=== PATIENT | female | born 1980 | race American Indian/Alaskan Native ===

== ENCOUNTER 2017-11-19 17:47 | Emergency (ER) | payer BC, MEDICAID ==
--- NOTE | 2017-11-19 18:31 | EDM.PDOC ---
ED HPI GENERAL MEDICAL PROBLEM - General Chief Complaint: ENT Problem Stated Complaint: [id number] really sick- strep Time Seen by Provider: 11/19/17 18:15 Source of Information: Reports: Patient History Limitations: Reports: No Limitations - History of Present Illness INITIAL COMMENTS - FREE TEXT/NARRATIVE: This 36 yo female patient reports to the ED with a sore throat, pressure in her ears and pressure in her head for 3 days. The patient reports she has been taking OTC medications for the past 3 days with little to no improvement. Duration: Day(s): Location: Reports: Head, Face Quality: Reports: Other Severity: Mild Improves with: Reports: None Worsens with: Reports: None Throat Pain Score (Numeric/FACES): 8 - Related Data Allergies Allergy/AdvReac Type Severity Reaction Status Date / Time No Known Allergies Allergy Verified 11/19/17 17:58 Home Meds: Home Meds . [No Known Home Meds] 11/19/17 [History] Past Medical History HEENT History: Reports: Other (See Below) Other HEENT History: Strep Throat Other OB/BYN History: LMP 10/03/2017, gets the Depo shot Social & Family History - Tobacco Use Smoking Status *Q: Never Smoker Second Hand Smoke Exposure: No ED ROS ENT - Review of Systems Review Of Systems: ROS reveals no pertinent complaints other than HPI. ED EXAM, ENT - Physical Exam Exam: See Below Exam Limited By: No Limitations General Appearance: Alert, WD/WN, Moderate Distress Eye Exam: Bilateral Eye: EOMI, Normal Inspection, PERRL Ears: TM Dullness Nose: Normal Inspection, Normal Mucousa, No Blood Mouth/Throat: Normal Inspection, Normal Gums, Normal Lips, Normal Oropharynx, Normal Teeth Head: Sinus Tenderness Neck: Normal Inspection, Supple, Non-Tender, Full Range of Motion Respiratory/Chest: No Respiratory Distress, Lungs Clear, Normal Breath Sounds, No Accessory Muscle Use, Chest Non-Tender Cardiovascular: Normal Peripheral Pulses, Regular Rate, Rhythm, No Edema, No Gallop, No JVD, No Murmur, No Rub GI/Abdominal: Normal Bowel Sounds, Soft, Non-Tender, No Organomegaly, No Distention, No Abnormal Bruit, No Mass (Female) Exam: Deferred Rectal (Female) Exam: Deferred Back: Normal Inspection, Full Range of Motion Extremities: Normal Inspection, Normal Range of Motion, Non-Tender, No Pedal Edema, Normal Capillary Refill Neurological: Alert, Oriented, CN II-XII Intact, Normal Cognition, Normal Gait, Normal Reflexes, No Motor/Sensory Deficits Psychiatric: Normal Affect, Normal Mood Skin: Warm, Dry, Intact, Normal Color, No Rash Lymphatic: No Adenopathy Course - Vital Signs Last Recorded V/S: Last Vital Signs Temp 37.2 C 11/19/17 17:52 Pulse 80 11/19/17 17:52 Resp 18 11/19/17 17:52 BP Pulse Ox 98 11/19/17 17:52 - Orders/Labs/Meds Orders: Active Orders 24 hr Category Date Time Status CULTURE STREP A CONFIRMATION [RM] Stat Lab 11/19/17 18:05 Results INFLUENZA A+B AG SCREEN [RM] Stat Lab 11/19/17 18:05 Received STREP SCRN A RAPID W CULT CONF [] Stat Lab 11/19/17 18:05 Results Departure - Departure Time of Disposition: 18:29 Disposition: Home, Self-Care 01 Condition: Fair Clinical Impression: Acute sinusitis Qualifiers: Sinusitis location: maxillary Recurrence: non-recurrent Qualified Code(s): J01.00 - Acute maxillary sinusitis, unspecified - Discharge Information Instructions: Sinusitis, Adult, [id number] Referrals: Jess Helm [facility] [Primary Care Provider] - Care Plan Goals: The patient was advised of the examination and lab results during the visit. The patient was given a script for Augmentin (875/125) to take 1 by mouth 2 times per day for 10 days. If the patient has any additional symptoms or concerns, the patient should follow-up with her primary care facility or return to the emergency department. - My Orders Last 24 Hours: My Active Orders 11/19/17 18:05 CULTURE STREP A CONFIRMATION [RM] Stat INFLUENZA A+B AG SCREEN [RM] Stat STREP SCRN A RAPID W CULT CONF [RM] Stat - Assessment/Plan Last 24 Hours: My Active Orders 11/19/17 18:05 CULTURE STREP A CONFIRMATION [RM] Stat INFLUENZA A+B AG SCREEN [RM] Stat STREP SCRN A RAPID W CULT CONF [RM] Stat
== END 2017-11-19 18:43 | disposition home or self-care (01) ==
LOC: DL.ED 17:47
DX: J01.00 Acute maxillary sinusitis, unspecified (principal)
CPT/HCPCS: 87081; 87430; 87804; 99283

== ENCOUNTER 2018-11-22 07:11 | Emergency (ER) | payer BC, MEDICAID ==
--- NOTE | 2018-11-22 07:22 | EDM.PDOC ---
ED HPI GENERAL MEDICAL PROBLEM - General Chief Complaint: General Stated Complaint: WORK WANTS HER CHECKED FOR FLU Time Seen by Provider: 11/22/18 07:21 Source of Information: Reports: Patient, Long-Term Records, RN History Limitations: Reports: No Limitations - History of Present Illness INITIAL COMMENTS - FREE TEXT/NARRATIVE: Pt to ER with c/o cough, congestion, fever, body aches, sore throat that began about 3 days ago. She states she works at [employer] and her work is requesting she be tested for influenza. Onset: Gradual Duration: Constant, Getting Worse - Related Data Allergies Allergy/AdvReac Type Severity Reaction Status Date / Time No Known Allergies Allergy Verified 11/22/18 07:15 Home Meds: Home Meds . [No Known Home Meds] 11/19/17 [History] Past Medical History HEENT History: Reports: Other (See Below) Other HEENT History: Strep Throat Cardiovascular History: Reports: None Respiratory History: Reports: None Gastrointestinal History: Reports: None LACTATION NURSE History: Reports: None Other LACTATION NURSE History: LMP 10/03/2017, gets the Depo shot Musculoskeletal History: Reports: None Neurological History: Reports: None Psychiatric History: Reports: None Endocrine/Metabolic History: Reports: None Hematologic History: Reports: None Immunologic History: Reports: None Oncologic (Cancer) History: Reports: None Dermatologic History: Reports: None - Infectious Disease History Infectious Disease History: Reports: None - Past Surgical History Head Surgeries/Procedures: Reports: None Female Surgical History: Reports: D&C Social & Family History - Family History Family Medical History: Noncontributory - Tobacco Use Smoking Status *Q: Never Smoker Second Hand Smoke Exposure: No - Caffeine Use Caffeine Use: Reports: Coffee, Soda - Recreational Drug Use Recreational Drug Use: No ED ROS GENERAL - Review of Systems Review Of Systems: ROS reveals no pertinent complaints other than HPI. ED EXAM, GENERAL - Physical Exam Exam: See Below Exam Limited By: No Limitations General Appearance: Alert, WD/WN, No Apparent Distress Eye Exam: Bilateral Eye: EOMI, Normal Inspection Ears: Normal External Exam, Normal Canal, Hearing Grossly Normal, Normal TMs Nose: Normal Inspection Throat/Mouth: Normal Inspection, Normal Lips, Normal Teeth, Normal Gums, Normal Oropharynx (mild erythema), Normal Voice, No Airway Compromise Head: Atraumatic, Normocephalic Neck: Normal Inspection, Supple, Non-Tender, Full Range of Motion Respiratory/Chest: No Respiratory Distress, Lungs Clear, Normal Breath Sounds, No Accessory Muscle Use, Chest Non-Tender Cardiovascular: Normal Peripheral Pulses, Regular Rate, Rhythm, No Edema, No Gallop, No JVD, No Murmur, No Rub Peripheral Pulses: 2+: Radial (L), Radial (R) GI/Abdominal: Normal Bowel Sounds, Soft, Non-Tender (Female) Exam: Deferred Rectal (Female) Exam: Deferred Back Exam: Normal Inspection, Full Range of Motion, NT Extremities: Normal Inspection, Normal Range of Motion, Non-Tender, Normal Capillary Refill, No Pedal Edema Neurological: Alert, Oriented, CN II-XII Intact, Normal Cognition, Normal Gait, Normal Reflexes, No Motor/Sensory Deficits Psychiatric: Normal Affect, Normal Mood Skin Exam: Warm, Dry, Intact, Normal Color, No Rash Lymphatic: No Adenopathy Course - Vital Signs Last Recorded V/S: Last Vital Signs Temp 97.1 F 11/22/18 07:15 Pulse 84 11/22/18 07:15 Resp 16 11/22/18 07:15 BP 148/98 H 11/22/18 07:15 Pulse Ox 98 11/22/18 07:15 - Orders/Labs/Meds Labs: Influenza A: Negative Influenza B: Negative Departure - Departure Time of Disposition: 07:42 Disposition: Home, Self-Care 01 Condition: Fair Clinical Impression: Viral upper respiratory illness - Discharge Information *PRESCRIPTION DRUG MONITORING PROGRAM REVIEWED*: No *COPY OF PRESCRIPTION DRUG MONITORING REPORT IN PATIENT ARGELIA: No Instructions: Viral Respiratory Infection, [id number], Cough, Adult, Easy-to- Read Forms: ED Department Discharge Additional Instructions: May use Tylenol and/or ibuprofen as directed for pain/fever Drink plenty of fluids Follow up with your primary care facility
== END 2018-11-22 07:49 | disposition home or self-care (01) ==
LOC: DL.ED 07:11
DX: J06.9 Acute upper respiratory infection, unspecified (principal)
CPT/HCPCS: 87804; 99283

== ENCOUNTER 2020-03-23 00:05 | Inpatient (IN) | payer BC, OTHER ==
[~2020-03-23 00:05] MED LIST: Acetaminophen 325 MG Tab PO PRN; Carboprost Tromethamine 250 MCG/1 ML Amp IM PRN; Lactated Ringers 1,000 ML IV ONE; Lidocaine 1% 30 ML SDV INJECT PRN; Methylergonovine 0.2 MG/1 ML Amp IM PRN; Misoprostol 400 MCG (4 X 100 MCG TAB) RECTAL PRN; Ondansetron 4 MG/2 ML SDV IVPUSH PRN; Oxytocin/Normal Saline 30 UNIT/500 ML BAG IV SCH; Sodium Chloride 0.9% 10 ML Syringe FLUSH PRN; Tranexamic Acid 1,000 MG in Sodium Chloride 0.9% 100 ML IV PRN
[2020-03-23] MEDS: Misoprostol 25 MCG (1/4 of 100 MCG) Tab VAG PRN ×3 (01:28→09:25)
[2020-03-23] MEDS: Acetaminophen 325 MG Tab PO PRN ×3 (01:32→15:54)
--- NOTE | 2020-03-23 09:46 | PN ---
DATE: 03/23/2020 SUBJECTIVE: The patient is status post Cytotec x2 and feeling her contractions, rates them at 6/10, coming every 3 to 5 minutes at this point in time. OBJECTIVE: heart tones in the 130s to 140s range with accelerations noted. Tocometer with contractions every 3 to 5 minutes. Vaginal exam reveals her to be 2+ cm, 60% effaced, -2 station, vertex suspected. ASSESSMENT: Intrauterine at 37 weeks, confirmed with 8 and 5/7 weeks ultrasound, complicated by intrahepatic cholestasis of , gestational diabetes mellitus, requiring medications, and currently blood pressure has been elevated in the non-severe range and we will be doing a preeclampsia workup as she may have gestational hypertension versus preeclampsia. She has also had hypothyroidism on meds that has been controlled, GBS negative status, anemia with hemoglobin 10.2 upon admission, and she is a G9, P6-0-2-6. PLAN: We will proceed with 3rd dose of Cytotec when she is due for it, and we will continue to follow clinically and closely at this point in time. [facility] /[id number]
--- NOTE | 2020-03-23 10:50 | OBOUT ---
DATE: 03/23/2020 TIME: 00:50 to 01:10. REASON FOR NST: 1. Intrauterine at 37 weeks, confirmed with 8 and 5/7 weeks ultrasound. 2. Intrahepatic cholestasis of . 3. Gestational diabetes mellitus, on meds. 4. Gestational hypertension versus preeclampsia. 5. Hypothyroidism, on meds. 6. GBS negative. 7. Anemia of . Hemoglobin 10.2 upon admission. 8. G9, P6-0-2-6. NST INTERPRETATION: During this time period, heart tone baseline is approximately 135 to 140, at least two 15 x 15 beats per minute accelerations making this strip reactive as well as reassuring. Tocometer reveals no evidence of contractions. Blood pressure upon admission shortly after midnight was 145/92, heart rate 97. ASSESSMENT: 1. Nonstress test, reactive and reassuring. 2. Tocometer without contractions. PLAN: Please see H and P, which was done through [employer] for this, as well as review of systems were reviewed and felt to be contributory for what was noted. Preeclampsia panel has been drawn at this point in time as elevated blood pressure has persisted. We will proceed with Cytotec type of induction. Did discuss this with the patient. Consent has been obtained and we will continue to follow clinically and closely. Please see H and P done through [employer] [facility] as well. [facility] /[id number]
[2020-03-23] MEDS: Oxytocin/Normal Saline 30 UNIT/500 ML BAG IV SCH (13:40)
[2020-03-23] MEDS: Lactated Ringers 1,000 ML IV SCH ×3 (13:40→20:28)
[2020-03-23] MEDS ORDERED: fentaNYL 100 MCG/2 ML SDV IVPUSH PRN (18:40)
[2020-03-23] MEDS ORDERED: Sodium Bicarbonate 4.2% 2.5 MEQ/5 ML SDV ONE (20:10)
[2020-03-23] MEDS ORDERED: EPINEPHrine 1 MG/1 ML Amp ONE (20:10)
[2020-03-23] MEDS ORDERED: fentaNYL 100 MCG/2 ML SDV ONE (20:10)
--- NOTE | 2020-03-23 20:37 | PCM.SN.2 ---
- Free Text/Narrative Note: Intrathecal, sitting position, sterile prep and drape, 1% lidocaine w bicarb for skinwheal to L2 L3 interspace x 2, introducer, 24 ga pencan x 3. Pos CSF ,neg heme, neg parasthesia. 0.1 ml pf 1:1000 epi. 20 mcg pf sufenta, 30 mcg pf fentanyl, 0.4 ml pf NS and 6 mg of 0.75% pf bupivacaine injected after CSF aspiration. Pt to L lateral position. Procedure time 2014 to 2044
[2020-03-23] MEDS ORDERED: ePHEDrine 50 MG/ML SDV ONE (20:46)
[2020-03-24] MEDS ORDERED: Simethicone 80 MG Tab.Chew PO PRN (00:20)
[2020-03-24] MEDS ORDERED: Benzocaine/Menthol 20%-0.5% Spray 56 GM Canister TOP PRN (00:20)
[2020-03-24] MEDS ORDERED: Zolpidem 5 MG Tab PO PRN (00:20)
[2020-03-24] MEDS ORDERED: Sodium Chloride 0.9% 10 ML Syringe FLUSH PRN (00:20)
[2020-03-24] MEDS ORDERED: Oxytocin 10 Units/1 ML SDV IM PRN (00:20)
--- NOTE | 2020-03-24 00:20 | PCM.DEL ---
Vacuum Extractor Progress Note - Alternative Labor Strategies Considered Alternative Labor Strategies Considered:: Reports: Yes Strategies Considered:: Reports: Contraction Intensity Adequate, Position Changes Used to Facilitate Rotation & Descent, Empty Bladder, Rest Indications Considered:: Reports: Yes Indications:: Reports: Suspicion of Immediate or Potential Compromise (recurrent variable decelerations) Time Out:: Reports: Yes - Patient Prepared Patient Prepared:: Reports: Yes Informed Consent:: Reports: Yes, Verbal Risks: Reports: Yes Risks Include:: Reports: Laceration, Shoulder Dystocia, Maternal Injury, Other Anesthesia/Analgesia Adequate:: Reports: Yes - Probability of Success High Probability of Success:: Reports: Yes Weight Estimated:: Reports: AGA Patient Diabetic:: Reports: Yes Pelvis Adequate:: Reports: Yes Position:: SAUL Asynclitic:: Reports: No Station:: vertex seen splitting labia - Application Time Maximum Application Time & Number of Pop-Offs Predetermined:: Reports: Yes Maximum Pressure Maintained in Green Zone (cm Hg):: 0 (see nurses notes) Total Application Time (min): *max=20min: 0 (for 2 contractions) Number of Times Cup Disengaged:: 0 Type of Vacuum Used:: Reports: Cup: Soft (kiwi larger cup) Vacuum Extraction: Successful - Exit Strategy Exit strategy available:: Reports: Yes and resuscitation teams readily available:: Reports: Yes - General Info Date of Service: 03/24/20 - Patient Data Vitals - Most Recent: Last Vital Signs Temp 98.1 F 03/23/20 20:36 Pulse 75 03/23/20 22:15 Resp 16 03/23/20 22:15 BP 82/53 L 03/23/20 22:15 Pulse Ox Weight - Most Recent: 103.873 kg Lab Results Last 24 Hours: Laboratory Results - last 24 hr 03/23/20 03/23/20 03/23/20 Range/Units 00:59 09:25 09:25 WBC 14.0 H (5.0-10.0) 10^3/uL RBC 3.96 L (4.2-5.4) 10^6/uL Hgb 10.2 L (12.0-16.0) g/dL Hct 31.6 L (37.0-47.0) % MCV 79.8 L (80-100) fL MCH 25.8 L (27.0-34.0) pg MCHC 32.3 L (33.0-35.0) g/dL Plt Count 184 (150-450) 10^3/uL BUN (7-18) mg/dL Creatinine (0.55-1.02) mg/dL Est Cr Clr Drug Dosing mL/min Estimated GFR (MDRD) POC Glucose (70-105) mg/dl Uric Acid (2.6-6.0) mg/dL AST (15-37) U/L ALT (14-59) U/L Lactate Dehydrogenase (81-234) U/L Urine Color Yellow (YELLOW) Urine Appearance Clear (CLEAR) Urine pH 6.0 (5.0-9.0) Ur Specific [place] <= 1.005 (1.005-1.030) Urine Protein Negative (NEGATIVE) Urine Glucose (UA) Negative (NEGATIVE) Urine Ketones Negative (NEGATIVE) Urine Occult Blood Negative (NEGATIVE) Urine Nitrite Negative (NEGATIVE) Urine Bilirubin Negative (NEGATIVE) Urine Urobilinogen 0.2 (0.2-1.0) mg/dL Ur Leukocyte Esterase Negative (NEGATIVE) Ur Random Creatinine 18.80 (No establ ref range) mg/dL U Random Total Protein < 6.0 (0.0-11.9) mg/dL Protein/Creatinin Ratio TNP COVID-19 (CARLEY) (NEGATIVE) 03/23/20 03/23/20 03/23/20 Range/Units 09:32 10:52 12:20 WBC (5.0-10.0) 10^3/uL RBC (4.2-5.4) 10^6/uL Hgb (12.0-16.0) g/dL Hct (37.0-47.0) % MCV (80-100) fL MCH (27.0-34.0) pg MCHC (33.0-35.0) g/dL Plt Count (150-450) 10^3/uL BUN 6 L (7-18) mg/dL Creatinine 0.83 (0.55-1.02) mg/dL Est Cr Clr Drug Dosing 84.35 mL/min Estimated GFR (MDRD) > 60 POC Glucose 80 (70-105) mg/dl Uric Acid 3.6 (2.6-6.0) mg/dL AST 20 (15-37) U/L ALT 27 (14-59) U/L Lactate Dehydrogenase 159 (81-234) U/L Urine Color (YELLOW) Urine Appearance (CLEAR) Urine pH (5.0-9.0) Ur Specific [place] (1.005-1.030) Urine Protein (NEGATIVE) Urine Glucose (UA) (NEGATIVE) Urine Ketones (NEGATIVE) Urine Occult Blood (NEGATIVE) Urine Nitrite (NEGATIVE) Urine Bilirubin (NEGATIVE) Urine Urobilinogen (0.2-1.0) mg/dL Ur Leukocyte Esterase (NEGATIVE) Ur Random Creatinine (No establ ref range) mg/dL U Random Total Protein (0.0-11.9) mg/dL Protein/Creatinin Ratio COVID-19 (CARLEY) Negative (NEGATIVE) Med Orders - Current: Current Medications Acetaminophen (Tylenol) 650 mg PO Q4H PRN PRN Reason: Pain/Fever Last Admin: 03/23/20 15:54 Dose: 650 mg Documented by: Carboprost Tromethamine (Hemabate Ds) 250 mcg IM ASDIRECTED PRN PRN Reason: HEMORRHAGE Fentanyl (Sublimaze) 50 mcg IVPUSH Q1H PRN PRN Reason: pain Last Admin: 03/23/20 19:16 Dose: 50 mcg Documented by: Tranexamic Acid 1,000 mg/ (Sodium Chloride) 110 mls @ 660 mls/hr IV ONETIME PRN PRN Reason: Bleeding Oxytocin/Sodium Chloride (Pitocin In Ns 30 Unit/500 Ml) 30 unit in 500 mls @ 2 mls/hr IV TITRATE MARY; Protocol Last Titration: 03/23/20 21:56 Dose: 16 munits/min, 16 mls/hr Documented by: Oxytocin/Sodium Chloride (Pitocin In Ns 30 Unit/500 Ml) 30 unit in 500 mls @ 2 mls/hr IV TITRATE MARY; Protocol Lactated Ringer's (Ringers, Lactated) 1,000 mls @ 125 mls/hr IV ASDIRECTED MARY Last Admin: 03/23/20 20:28 Dose: 125 mls/hr Documented by: Lidocaine HCl (Xylocaine-Mpf 1%) 30 ml INJECT ASDIRECTED PRN PRN Reason: Perineal Repair Methylergonovine Maleate (Methergine) 0.2 mg IM ASDIRECTED PRN PRN Reason: Hemorrhage Misoprostol (Cytotec) 800 mcg RECTAL ASDIRECTED PRN PRN Reason: Hemorrhage Misoprostol (Cytotec) 25 mcg VAG Q4H PRN PRN Reason: cervical ripening Last Admin: 03/23/20 09:25 Dose: 25 mcg Documented by: Ondansetron HCl (Zofran) 4 mg IVPUSH Q4H PRN PRN Reason: Nausea/Vomiting Last Admin: 03/23/20 20:13 Dose: 4 mg Documented by: Sodium Chloride (Saline Flush) 10 ml FLUSH ASDIRECTED PRN PRN Reason: Keep Vein Open Discontinued Medications Ephedrine Sulfate (Ephedrine Sulfate) Confirm Administered Dose 50 mg .ROUTE . STK-MED ONE Stop: 03/23/20 20:47 Epinephrine HCl (Adrenalin) Confirm Administered Dose 1 mg .ROUTE .STK-MED ONE Stop: 03/23/20 20:11 Last Admin: 03/23/20 21:45 Dose: Not Given Documented by: Fentanyl (Sublimaze) Confirm Administered Dose 100 mcg .ROUTE .STK-MED ONE Stop: 03/23/20 20:11 Last Admin: 03/23/20 21:45 Dose: Not Given Documented by: Lactated Ringer's (Ringers, Lactated) 1,000 mls @ 500 mls/hr IV BOLUS ONE Stop: 03/23/20 02:00 Last Admin: 03/23/20 21:44 Dose: Not Given Documented by: Sodium Bicarbonate (Sodium Bicarbonate 4.2%) Confirm Administered Dose 2.5 meq .ROUTE .STK-MED ONE Stop: 03/23/20 20:11 Last Admin: 03/23/20 21:45 Dose: Not Given Documented by: Sufentanil Citrate (Sufenta) Confirm Administered Dose 50 mcg .ROUTE .STK-MED ONE Stop: 03/23/20 20:11 Last Admin: 03/23/20 21:45 Dose: Not Given Documented by: - Problem List Review Problem List Initiated/Reviewed/Updated: Yes - My Orders Last 24 Hours: My Active Orders 03/23/20 00:01 Patient Status [ADT] Routine Communication Order [RC] ASDIRECTED Heart Tones [RC] CONTINUOUS Notify Provider Vital Signs OB [RC] ASDIRECTED Notify Provider [RC] PRN Notify Provider [RC] PRN Notify Provider [RC] STAT Peripheral IV Care [RC] Pump Management, Intrathecal [RC] ASDIRECTED Up ad Tereza [RC] ASDIRECTED Vaginal Exam [RC] PRN Vital Signs [RC] PER UNIT ROUTINE Acetaminophen [TylenoL] 650 mg PO Q4H PRN Carboprost Tromethamine [Hemabate DS] 250 mcg IM ASDIRECTED PRN Lactated Ringers [Ringers, Lactated] 1,000 ml IV ASDIRECTED Lidocaine 1% [Xylocaine-MPF 1%] 30 ml INJECT ASDIRECTED PRN Methylergonovine [Methergine] 0.2 mg IM ASDIRECTED PRN Ondansetron [Zofran] 4 mg IVPUSH Q4H PRN Oxytocin/Normal Saline [Pitocin in NS 30 UNIT/500 ML] 30 unit in 500 ml IV TITRATE Oxytocin/Normal Saline [Pitocin in NS 30 UNIT/500 ML] 30 unit in 500 ml IV TITRATE Sodium Chloride 0.9% [Saline Flush] 10 ml FLUSH ASDIRECTED PRN Tranexamic Acid [Cyklokapron] 1,000 mg Sodium Chloride 0.9% [Normal Saline] 100 ml IV ONETIME miSOPROStoL [Cytotec] 25 mcg VAG Q4H PRN miSOPROStoL [Cytotec] 800 mcg RECTAL ASDIRECTED PRN Peripheral IV Insertion Adult [OM.PC] Urgent Saline Lock Insert [OM.PC] Routine 03/23/20 Lunch Regular Diet [DIET] 03/23/20 13:23 Communication Order [RC] ROUTINE 03/23/20 18:40 fentaNYL [Sublimaze] 50 mcg IVPUSH Q1H PRN 03/23/20 19:04 Blood Glucose Check, Bedside [RC] ASDIRECTED 03/23/20 19:30 Nitrous Oxide Delivery [RC] ASDIRECTED 03/23/20 19:43 OB Discontinue Nitrous Oxide [RC] ASDIRECTED
[2020-03-24] MEDS: Ibuprofen 800 MG Tab PO PRN ×3 (00:57→17:28)
[2020-03-24] MEDS: Oxytocin/Normal Saline 30 UNIT/500 ML BAG IV SCH (01:39)
[2020-03-24] MEDS: Acetaminophen 325 MG Tab PO PRN ×3 (05:48→22:05)
[2020-03-24] MEDS: Ferrous Sulfate 325 MG Tab PO SCH (08:30)
[2020-03-24] MEDS: Docusate Sodium 100 MG Cap PO PRN ×2 (08:30→22:05)
[2020-03-24] MEDS: Prenatal Multivitamin with Calcium/Folic Acid/Iron Tab PO SCH (08:30)
--- NOTE | 2020-03-24 08:32 | PN ---
DATE: 03/23/2020 SUBJECTIVE: The patient's contractions are rated at 8/10, coming every 2 to 3 minutes at this point in time. OBJECTIVE: heart tones in the 130s, felt to reactive and reassuring. Tocometer reveals contractions every couple minutes. Pitocin at 14 milliunits per minute. Vaginal exam reveals her to be 3+ cm, 75% effaced, -1 to - 2 station, vertex suspected. Artificial rupture membranes done after discussion with the patient yielding mild clear fluid. ASSESSMENT: Intrauterine at 37 weeks, confirmed with 8-/ week ultrasound complicated by intrahepatic cholestasis of , gestational diabetes mellitus, on meds, and workup for gestational hypertension versus preeclampsia with diagnosis of gestational hypertension suspected, as well as the patient having hypothyroidism, on meds, GBS negative, G9, P6-0-2-6, with anemia with hemoglobin 10.2 upon admission. PLAN: The patient is now status post NST, Cytotec x3, Pitocin augmentation, and artificial rupture of membranes done most recently as above. We will continue to follow clinically and closely. The patient understands and agrees with the above treatment plan. [facility] /[id number]
--- NOTE | 2020-03-24 09:50 | DEL ---
DATE: 03/24/2020 PREOPERATIVE DIAGNOSES: 1. Intrauterine at 37-1/7 weeks, confirmed with 8-5/7-week ultrasound. 2. Intrahepatic cholestasis of . 3. Gestational diabetes mellitus requiring medicines. 4. Gestational hypertension. 5. Hypothyroidism, on medicines and controlled. 6. Group B Streptococcus negative. 7. Anemia of with hemoglobin 10.2. 8. G9, P6-0-1-6. 9. Recurrent variable decelerations. 10.Advanced maternal age. POSTOPERATIVE DIAGNOSES: 1. Intrauterine 37-1/7 weeks, confirmed with 8-5/7-week ultrasound - delivered. 2. Intrahepatic cholestasis of . 3. Gestational diabetes mellitus requiring medicines. 4. Gestational hypertension. 5. Hypothyroidism, on medicines and controlled. 6. Group B Streptococcus negative. 7. Anemia of with hemoglobin 10.2. 8. -0-1-6. 9. Recurrent variable decelerations. 10.Advanced maternal age. 11.Nuchal cord x1, reduced bluntly with delivery. PROCEDURE PERFORMED: On 03/23/2020; NST, Cytotec x3, Pitocin augmentation, and artificial rupture of membranes, with subsequent vacuum assisted vaginal delivery with continued Pitocin augmentation on 03/24/2020. Procedure performed by Jacob Richard MD. ANESTHESIA/ANALGESIA: The patient did receive an intrathecal in the 1st stage of labor and used nitrous oxide in the 2nd stage of labor and 3rd stage of labor. ESTIMATED BLOOD LOSS: 250 mL. FINDINGS: Female, score and weight pending. SUMMARY OF EVENTS: The patient is a 39-year-old G9, P6-0-2-6 intrauterine at 37 weeks on date of admission, was induced due to intrahepatic cholestasis of as well as risk factors including gestational diabetes mellitus on meds, and gestational hypertension diagnosed shortly after admission. She also was on levothyroxine for hypothyroidism and was GBS negative, with anemia with hemoglobin 10.2 upon admission. She underwent NST, followed by Cytotec x3, Pitocin augmentation, and artificial rupture of membranes on 03/23/2020. On aircraft electronics technical officer, 03/24/2020, shortly after midnight, the patient was pushing with contractions, and during this time period and prior to this she was having recurrent variable decelerations. I did discuss using a Kiwi vacuum for delivery. Did discuss with her and her male partner risks, benefits, alternatives, and complications of this, she understood and agreed, and wished to proceed. Verbal consent was obtained. Subsequently with patient pushing, vertex was seen splitting the labia. Kiwi vacuum was applied, pumped up to the green, and with gentle pulling with the patient pushing with her contractions, further descent was noted with vertex. Between the contraction pressure was let down to yellow zone. Subsequently with the next contraction, vacuum was pumped up to the green, and with gentle pulling pressure, with patient pushing, vertex was delivered. Vacuum was disengaged. SAUL presentation was noted. Nuchal cord x1 was reduced bluntly and then anterior and posterior shoulders as well as rest of the infant delivered without difficulty. Mouth and nares were suctioned. Cord was doubly clamped and cut. Infant was brought over to team for resuscitation. Approximately 10 mL of cord blood was obtained for labs. Placenta then delivered with gentle cord traction and fundal massage within 10 minutes. Perineum, vagina, and perirectal areas were then examined without any tears or lacerations. Mother and are currently stable at the time of dictation. [facility] /[id number]
[2020-03-24] MEDS ORDERED: fentaNYL 100 MCG/2 ML SDV ITHECAL ONE (16:24)
[2020-03-24] MEDS ORDERED: Sodium Bicarbonate 4.2% 2.5 MEQ/5 ML SDV ONE (16:24)
[2020-03-24] MEDS ORDERED: Sodium Chloride 0.9% 10 ML SDV ONE (16:24)
[2020-03-24] MEDS ORDERED: EPINEPHrine 1 MG/1 ML Amp ONE (16:24)
[2020-03-25] MEDS: Docusate Sodium 100 MG Cap PO PRN (09:17)
[2020-03-25] MEDS: Ibuprofen 800 MG Tab PO PRN (09:18)
[2020-03-25] MEDS: Prenatal Multivitamin with Calcium/Folic Acid/Iron Tab PO SCH (09:18)
[2020-03-25] MEDS: Ferrous Sulfate 325 MG Tab PO SCH (09:18)
[2020-03-25] MEDS: Acetaminophen 325 MG Tab PO PRN (09:19)
--- NOTE | 2020-03-26 10:40 | DISCH ---
ADMIT DIAGNOSES: 1. Intrauterine at 37 weeks, confirmed with 8-5/7 week ultrasound. 2. Intrahepatic cholestasis of . 3. Gestational diabetes mellitus, on medications. 4. Gestational hypertension with preeclampsia ruled out. 5. Hypothyroidism, on medications. 6. Advanced maternal age. 7. Anemia of . Hemoglobin 10.2 upon admission. 8. Group B Streptococcus negative. 9. G9, P6-0-2-6. DISCHARGE DIAGNOSES: 1. Intrauterine at 37-1/7 weeks, confirmed with 8-5/7 week ultrasound, delivered. 2. Nuchal cord x1, reduced bluntly at delivery. 3. Recurrent variable decelerations requiring vacuum-assisted vaginal delivery. 4. Intrahepatic cholestasis of . 5. Gestational diabetes mellitus, on medications. 6. Gestational hypertension with preeclampsia ruled out. 7. Hypothyroidism, on medications. 8. Advanced maternal age. 9. Anemia of . Hemoglobin 10.2 upon admission. 10.Group B Streptococcus negative. 11.G9, P6-0-2-6. PROCEDURES PERFORMED: Nonstress test, Cytotec x3, Pitocin augmentation, artificial rupture of membranes on 03/23/2020, followed by vacuum-assisted vaginal delivery on 03/24/[address] Richard. HISTORY OF PRESENT ILLNESS: Please see H and P. SUMMARY OF HOSPITAL COURSE: The patient admitted on above date with above diagnosis, underwent the above procedures. Then, went on inspector purchased parts shortly after midnight on 03/24/2020 to have a vacuum-assisted vaginal delivery, yielding a female, scores 7 and 9, weighing 8 pounds (3635 g) with nuchal cord x1, reduced bluntly at delivery. Please see delivery note for further details. day 0, hemoglobin dropped from 10.2 down to 9.9. Platelets were stable at 188. Preeclampsia labs were done due to her gestational hypertension and negative. COVID was also negative upon admission. day #1, date of discharge, the patient was tolerating p.o., was ambulating, urinating, passing flatus, and requesting discharge. PHYSICAL EXAMINATION: Vital Signs: Last set of vitals: Temperature 98.1, heart rate 86, blood pressure 123/60, respiratory rate 18. Lungs: Clear to auscultation bilaterally. Heart: S1, S2. Regular rate and rhythm. Abdomen: Firm uterus, +2 above umbilicus. Extremities: Trace to 1+ pitting edema to proximal tibia. CONDITION ON DISCHARGE COMPARED TO CONDITION ON ADMISSION: Improved. DISCHARGE INSTRUCTIONS: 1. Diet: As tolerated. 2. Activity: No lifting more than 20 pounds. No sit-ups or straining. Pelvic rest for the next 6 weeks with immediate return to fertility discussed with the patient. Reasons to return or go to emergency room discussed with the patient in detail, including but not limited to, temperature greater than 100.4, foul-smelling discharge, red hot tender breasts, or increased vaginal bleeding. DISCHARGE MEDICATIONS: [id number] ibuprofen for pain, iron sulfate 325 b.i.d. x6 weeks. She has iron at home and vitamins x6 weeks. FOLLOWUP: In 6 weeks . Please see discharge paperwork for further details. Discussed the importance of followup and ramifications of not doing so in regard to her, as well as her baby, and reason to go to emergency room in regard to her baby, and followup has been scheduled for 03/28/2020 for her baby. [facility] /[id number]
== END 2020-03-25 12:42 | disposition home or self-care (01) | DRG 560 ==
LOC: DL.OBCHECK 00:05 → DL.OB 00:07 → OBSVTOIN 03-24 00:05
PROVIDERS: ADMIT Family Medicine; ATTEND Family Medicine
PROC: 10D07Z6 Extraction of Products of Conception, Vacuum, Via Natural or Artificial Opening (ICD-10-PCS; principal; 2020-03-24)
PROC: 4A1HXCZ Monitoring of Products of Conception, Cardiac Rate, External Approach (ICD-10-PCS; 2020-03-24)
PROC: 3E0R3BZ Introduction of Anesthetic Agent into Spinal Canal, Percutaneous Approach (ICD-10-PCS; 2020-03-24)
PROC: 3E0P7VZ Introduction of Hormone into Female Reproductive, Via Natural or Artificial Opening (ICD-10-PCS; 2020-03-24)
DX: O26.62 Liver and biliary tract disorders in childbirth (principal); K83.1 Obstruction of bile duct; Z3A.37 37 weeks gestation of pregnancy; Z37.0 Single live birth; O24.425 Gestational diabetes mellitus in childbirth, controlled by oral hypoglycemic drugs; O14.94 Unspecified pre-eclampsia, complicating childbirth; O99.284 Endocrine, nutritional and metabolic diseases complicating childbirth; E03.9 Hypothyroidism, unspecified; O99.02 Anemia complicating childbirth; D64.9 Anemia, unspecified; O69.81X0 Labor and delivery complicated by cord around neck, without compression, not applicable or unspecified; O76 Abnormality in fetal heart rate and rhythm complicating labor and delivery; Z20.828 Contact with and (suspected) exposure to other viral communicable diseases; Z79.84 Long term (current) use of oral hypoglycemic drugs; Z79.899 Other long term (current) drug therapy; Z87.891 Personal history of nicotine dependence
CPT/HCPCS: 01967; 36415; 51701; 59409; 81003; 82565; 82570; 82962; 83615; 84156; 84450; 84460; 84520; 84550; 85027; A9270-GY; J0171; J2405; J2590; J3010; J7120; U0002

== ENCOUNTER 2020-06-07 22:02 | Emergency (ER) | payer BC, OTHER ==
[2020-06-07 23:05] LABS: ANION GAP 13.7 mEq/L (7-13); CHLORIDE,CL 101 mmol/L (98-107); SODIUM,NA 139 mmol/L (136-145)
--- NOTE | 2020-06-07 23:23 | CT ---
PROCEDURE INFORMATION: Exam: CT Chest Without Contrast Exam date and time: 06/07/2020 10:56 PM Age: 39 years old Clinical indication: Shortness of breath; Additional info: Short of breath, covid + TECHNIQUE: Imaging protocol: Computed tomography of the chest without contrast. Radiation optimization: All CT scans at this facility use at least one of these dose optimization techniques: automated exposure control; mA and/or kV adjustment per patient size (includes targeted exams where dose is matched to clinical indication); or iterative reconstruction. COMPARISON: No relevant prior studies available. FINDINGS: Lungs: Unremarkable. No consolidation. No masses. Pleural space: Unremarkable. No pneumothorax. No pleural effusion. Heart: Unremarkable. No cardiomegaly. No pericardial effusion. Aorta: Unremarkable. No aortic aneurysm. Lymph nodes: Unremarkable. No enlarged lymph nodes. Bones/joints: Unremarkable. No acute fracture. Soft tissues: Unremarkable. Additional findings: A stone is noted within the gallbladder. There is no gallbladder wall or pericholecystic fluid. The stone measures approximately 2.4 x 2.2 cm. IMPRESSION: 1. Normal noncontrast CT scan of the chest. No evidence for acute cardiopulmonary disease. 2. Cholelithiasis without evidence for acute cholecystitis.
--- NOTE | 2020-06-07 23:30 | EDM.PDOC ---
ED HPI GENERAL MEDICAL PROBLEM - General Chief Complaint: Respiratory Problem Stated Complaint: TEMP 97*1, COVID POS Time Seen by Provider: 06/07/20 23:20 Source of Information: Reports: Patient History Limitations: Reports: No Limitations - History of Present Illness INITIAL COMMENTS - FREE TEXT/NARRATIVE: This 39 yo female patient reports to the ED with shortness of breath and an recent COVID positive test result. The patient reports she also has a 7 yo child in the home with COVID. The patient reports her tested negative. The patient started to notice some shortness of breath today. The patient reports she has had a cough throughout her illness. Onset: Today Duration: Constant Location: Reports: Chest Quality: Reports: Other Severity: Moderate Improves with: Reports: None Worsens with: Reports: None Associated Symptoms: Reports: Cough, Shortness of Breath Treatments QUALITY REVIEW SPECIALIST: Reports: Acetaminophen - Related Data Allergies Allergy/AdvReac Type Severity Reaction Status Date / Time No Known Allergies Allergy Verified 06/07/20 22:21 Past Medical History - Past Health History Medical/Surgical History: Denies Medical/Surgical History HEENT History: Reports: Other (See Below) Other HEENT History: Strep Throat Cardiovascular History: Reports: None Respiratory History: Reports: None Gastrointestinal History: Reports: None Genitourinary History: Reports: None AIRDROP SYSTEMS TECHNICIAN History: Reports: , Spontaneous Other AIRDROP SYSTEMS TECHNICIAN History: LMP 10/03/2017, gets the Depo shot Musculoskeletal History: Reports: None Neurological History: Reports: None Psychiatric History: Reports: None Endocrine/Metabolic History: Reports: Diabetes, Gestational, Hypothyroidism Hematologic History: Reports: Anemia Immunologic History: Reports: None Oncologic (Cancer) History: Reports: None Dermatologic History: Reports: None - Infectious Disease History Infectious Disease History: Reports: None - Past Surgical History Head Surgeries/Procedures: Reports: None Female Surgical History: Reports: D&C, Other (See Below) Other Female Surgeries/Procedures: colpo Social & Family History - Family History Family Medical History: Noncontributory - Tobacco Use Tobacco Use Status *Q: Never Tobacco User - Caffeine Use Caffeine Use: Reports: None - Recreational Drug Use Recreational Drug Use: No ED ROS GENERAL - Review of Systems Review Of Systems: Comprehensive ROS is negative, except as noted in HPI. ED EXAM, GENERAL - Physical Exam Exam: See Below Exam Limited By: No Limitations General Appearance: Alert, WD/WN, No Apparent Distress Eye Exam: Bilateral Eye: EOMI, Normal Inspection, PERRL Ears: Normal External Exam, Normal Canal, Hearing Grossly Normal, Normal TMs Nose: Normal Inspection, Normal Mucosa, No Blood Throat/Mouth: Normal Inspection, Normal Lips, Normal Teeth, Normal Gums, Normal Oropharynx, Normal Voice, No Airway Compromise Head: Atraumatic, Normocephalic Neck: Normal Inspection, Supple, Non-Tender, Full Range of Motion Respiratory/Chest: No Respiratory Distress, Lungs Clear, Normal Breath Sounds, No Accessory Muscle Use, Chest Non-Tender Cardiovascular: Normal Peripheral Pulses, Regular Rate, Rhythm, No Edema, No Gallop, No JVD, No Murmur, No Rub GI/Abdominal: Normal Bowel Sounds, Soft, Non-Tender, No Organomegaly, No Distention, No Abnormal Bruit, No Mass (Female) Exam: Deferred Rectal (Female) Exam: Deferred Extremities: Normal Inspection, Normal Range of Motion, Non-Tender, Normal Capillary Refill, No Pedal Edema Neurological: Alert, Oriented, CN II-XII Intact, Normal Cognition, Normal Gait, Normal Reflexes, No Motor/Sensory Deficits Psychiatric: Normal Affect, Normal Mood Skin Exam: Warm, Dry, Intact, Normal Color, No Rash Lymphatic: No Adenopathy Course - Vital Signs Last Recorded V/S: Last Vital Signs Temp 35.5 C L 06/07/20 22:13 Pulse 94 06/07/20 22:33 Resp 18 06/07/20 22:33 BP 133/78 06/07/20 22:33 Pulse Ox 99 06/07/20 22:33 - Orders/Labs/Meds Orders: Active Orders 24 hr Category Date Time Status CULTURE BLOOD [BC] Stat Lab 06/07/20 22:31 Ordered Labs: Laboratory Tests 06/07/20 06/07/20 06/07/20 Range/Units 22:40 22:40 22:40 WBC 7.1 (5.0-10.0) 10^3/uL RBC 4.79 (4.2-5.4) 10^6/uL Hgb 11.7 L D (12.0-16.0) g/dL Hct 36.6 L (37.0-47.0) % MCV 76.4 L D (80-100) fL MCH 24.4 L (27.0-34.0) pg MCHC 32.0 L (33.0-35.0) g/dL Plt Count 184 (150-450) 10^3/uL Neut % (Auto) 73.4 (42.2-75.2) % Lymph % (Auto) 18.6 L (20.5-50.1) % [place] % (Auto) 6.5 (2-8) % Eos % (Auto) 1.4 (1.0-3.0) % Baso % (Auto) 0.1 (0.0-1.0) % Sodium 139 (136-145) mmol/L Potassium 3.7 (3.5-5.1) mmol/L Chloride 101 (98-107) mmol/L Carbon Dioxide 28 (21-32) mmol/L Anion Gap 13.7 H (7-13) mEq/L BUN 12 (7-18) mg/dL Creatinine 0.67 (0.55-1.02) mg/dL Est Cr Clr Drug Dosing 104.49 mL/min Estimated GFR (MDRD) > 60 BUN/Creatinine Ratio 17.9 (No establ ref range) Glucose 116 H (74-99) mg/dL Lactic Acid 0.7 (0.4-2.0) mmol/L Calcium 8.7 (8.5-10.1) mg/dL Total Bilirubin 0.4 (0.2-1.0) mg/dL AST 30 (15-37) U/L ALT 46 (14-59) U/L Alkaline Phosphatase 93 (46-116) U/L Total Protein 7.6 (6.4-8.2) g/dL Albumin 3.6 (3.4-5.0) g/dL Globulin 4.0 Albumin/Globulin Ratio 0.9 Departure - Departure Time of Disposition: 23:28 Disposition: Home, Self-Care 01 Condition: Fair Clinical Impression: COVID-19, Cough - Discharge Information *PRESCRIPTION DRUG MONITORING PROGRAM REVIEWED*: Not Applicable *COPY OF PRESCRIPTION DRUG MONITORING REPORT IN PATIENT ARGELIA: Not Applicable Instructions: Cough, Adult, [id number], COVID-19: How to Protect Yourself and Others - CDC, Prevent the Spread of COVID-19 if You Are Sick - [facility] Forms: ED Department Discharge Care Plan Goals: The patient was advised of the examination, lab and CT results during the visit. The patient was advised to continue to follow recommendations provided to her. The patient should remain isolated and may take Tylenol, ibuprofen and glhx-[id number]-mkwqsiz medications for temporary symptom relief. If the patient has any additional symptoms or concerns, the patient should either return to the emergency department or visit her primary care facility. Sepsis Event Note (ED) - Evaluation Sepsis Screening Result: Possible Sepsis Risk - Focused Exam Vital Signs: Vital Signs Temp Pulse Resp BP Pulse Ox 06/07/20 22:33 94 18 133/78 99 06/07/20 22:30 161/99 H 06/07/20 22:13 35.5 C L 97 18 176/106 H 100 - My Orders Last 24 Hours: My Active Orders 06/07/20 22:31 CULTURE BLOOD [BC] Stat - Assessment/Plan Last 24 Hours: My Active Orders 06/07/20 22:31 CULTURE BLOOD [BC] Stat
== END 2020-06-07 23:41 | disposition home or self-care (01) ==
LOC: DL.ED 22:02
DX: U07.1 COVID-19 (principal)
CPT/HCPCS: 36415; 71250; 80053; 83605; 85025; 87040; 99285-25

== ENCOUNTER 2020-09-17 10:35 | Emergency (ER) | payer OTHER, BC ==
--- NOTE | 2020-09-17 10:55 | EDM.PDOC ---
ED HPI GENERAL MEDICAL PROBLEM - General Chief Complaint: Upper Extremity Injury/Pain Stated Complaint: FELL AND INJURED LEFT ARM Time Seen by Provider: 09/17/20 10:50 Source of Information: Reports: Patient, RN, RN Notes Reviewed History Limitations: Reports: No Limitations - History of Present Illness INITIAL COMMENTS - FREE TEXT/NARRATIVE: Patient presents to the ED via personal vehicle with complaints of pain to her left upper extremity. The patient reports she fell onto the left arm at approximately 0815 this morning while walking into [facility]. She denies loss of consciousness during the fall and did not hit her head. She notes an increase in pain to the left arm since the injury, especially to the left posterior elbow. She reports tingling and numbness to the elbow, and distal to the forearm and fingers. She states she has not taken any medication for this problem. She denies loss of motor function to the extremity. She denies history of injury to this extremity. Left Arm Pain Score (Numeric/FACES): 6 - Related Data Allergies Allergy/AdvReac Type Severity Reaction Status Date / Time No Known Allergies Allergy Verified 09/17/20 10:45 Home Meds: Home Meds Levothyroxine 75 mcg PO ACBREAKFAST 09/17/20 [History] Past Medical History - Past Health History Medical/Surgical History: Denies Medical/Surgical History HEENT History: Reports: Other (See Below) Other HEENT History: Strep Throat Cardiovascular History: Reports: None Respiratory History: Reports: None Gastrointestinal History: Reports: None Genitourinary History: Reports: None BALLOON TESTER History: Reports: , Spontaneous Other BALLOON TESTER History: LMP 10/03/2017, gets the Depo shot Musculoskeletal History: Reports: None Neurological History: Reports: None Psychiatric History: Reports: None Endocrine/Metabolic History: Reports: Diabetes, Gestational, Hypothyroidism Hematologic History: Reports: Anemia Immunologic History: Reports: None Oncologic (Cancer) History: Reports: None Dermatologic History: Reports: None - Infectious Disease History Infectious Disease History: Reports: None - Past Surgical History Head Surgeries/Procedures: Reports: None Female Surgical History: Reports: D&C, Other (See Below) Other Female Surgeries/Procedures: colpo Social & Family History - Family History Family Medical History: No Pertinent Family History - Tobacco Use Tobacco Use Status *Q: Never Tobacco User Second Hand Smoke Exposure: No - Caffeine Use Caffeine Use: Reports: Coffee, Soda - Recreational Drug Use Recreational Drug Use: No Review of Systems - Review of Systems Review Of Systems: Comprehensive ROS is negative, except as noted in HPI. ED EXAM, GENERAL - Physical Exam Exam: See Below Exam Limited By: No Limitations General Appearance: Alert, No Apparent Distress Respiratory/Chest: No Respiratory Distress, Lungs Clear, Normal Breath Sounds, No Accessory Muscle Use, Chest Non-Tender Cardiovascular: Normal Peripheral Pulses, Regular Rate, Rhythm, No Edema, No Gallop, No JVD, No Murmur, No Rub Peripheral Pulses: 2+: Radial (L), Radial (R) Extremities: Normal Capillary Refill, Arm Pain (To left upper arm, left elbow, and left forearm), Limited Range of Motion (To left shoulder and left elbow). No: Joint Swelling, Mottled, Pallor, Redness Neurological: Alert, Oriented, CN II-XII Intact, Normal Cognition, Normal Gait, No Motor/Sensory Deficits Psychiatric: Normal Affect, Normal Mood Skin Exam: Warm, Dry, Intact, Normal Color, No Rash. No: Wound/Incision Course - Vital Signs Last Recorded V/S: Last Vital Signs Temp 97.9 F 09/17/20 10:45 Pulse 90 09/17/20 10:45 Resp 16 09/17/20 10:45 BP 147/93 H 09/17/20 10:45 Pulse Ox 100 09/17/20 10:45 - Orders/Labs/Meds Orders: Active Orders 24 hr Category Date Time Status Forearm 2V Rt [CR] Urgent Exams 09/17/20 10:52 Stop Req Humerus Rt [CR] Urgent Exams 09/17/20 10:52 Stop Req - Radiology Interpretation Free Text/Narrative:: [facility] - [facility] Final Radiology Report Call: [phone] assistance Online chat: [email or web address] Name: SHERI GREEN Age: 39Years F Date: 09/17/2020 SSN: -- : 1980 Study: CR HUMERUS LT Requesting Physician: Talia Talley Images: 2 Addl Studies: Provided Clinical History: Fell onto extremity while walking Contrast: Contrast Medium: Contrast Amount: Contrast Method: CONFIDENTIALITY STATEMENT This report is intended only for use by the referring physician, and only in accordance with law. If you received this in error, call [phone]. Page 1 of 1 PROCEDURE INFORMATION: Exam: XR Left Humerus Exam date and time: 09/17/2020 10:57 AM Age: 39 years old Clinical indication: Other: Fell onto extremity while walking TECHNIQUE: Imaging protocol: XR Left humerus Views: 2 or more views. COMPARISON: No relevant prior studies available. FINDINGS: Bones/joints: There is anatomic alignment. There is no acute fracture or dislocation. Small round glenoid bone island is identified. Joint spaces are preserved. Soft tissues: Normal. IMPRESSION: No acute abnormality. Thank you for allowing us to participate in the care of your patient. Dictated and Authenticated by: Shari Calix MD 09/17/2020 11:23 AM Central Time ([place] & [place]) [facility] Final Radiology Report Call: [phone] assistance Online chat: [email or web address] Name: SHERI GREEN Age: 39Years F Date: 09/17/2020 SSN: -- : [id number] Study: CR FOREARM 2V LT Requesting Physician: Talia Talley Images: 2 Addl Studies: Provided Clinical History: Fell onto extremity while walking Contrast: Contrast Medium: Contrast Amount: Contrast Method: CONFIDENTIALITY STATEMENT This report is intended only for use by the referring physician, and only in accordance with law. If you received this in error, call [phone]. Page 1 of 1 PROCEDURE INFORMATION: Exam: XR Left Forearm Exam date and time: 09/17/2020 11:01 AM Age: 39 years old Clinical indication: Other: Fell onto extremity while walking TECHNIQUE: Imaging protocol: XR Left forearm. Views: 2 views. COMPARISON: CR Humerus Lt 09/17/2020 10:57 AM FINDINGS: Bones/joints: There is anatomic alignment. No acute fracture or dislocation. The joint spaces are preserved. Soft tissues: Normal. IMPRESSION: No acute abnormality. Thank you for allowing us to participate in the care of your patient. Dictated and Authenticated by: Shari Calix MD 09/17/2020 11:26 AM Central Time ([place] & [place]) - Re-Assessments/Exams Free Text/Narrative Re-Assessment/Exam: 09/17/20 Xray of humerus and forearm unremarkable for acute processes; no fracture or dislocation. Findings of imaging discussed with patient. Supportive care measures discussed with patient. She verbalized understanding and agreement with plan of care. Departure - Departure Time of Disposition: 11:34 Disposition: Home, Self-Care 01 Condition: Good Clinical Impression: Fall from ground level, Pain in left upper arm, Pain in left forearm Injury of elbow, left Qualifiers: Encounter type: initial encounter Qualified Code(s): S59.902A - Unspecified injury of left elbow, initial encounter - Discharge Information *PRESCRIPTION DRUG MONITORING PROGRAM REVIEWED*: Not Applicable *COPY OF PRESCRIPTION DRUG MONITORING REPORT IN PATIENT ARGELIA: Not Applicable Forms: ED Department Discharge Additional Instructions: 1.) Apply ice to the affected elbow as swelling and pain persist. 2.) You may take ibuprofen (Motrin/Advil) 400mg every six hours, as pain and swelling persist. You may also take acetaminophen (Tylenol) 650mg every six hours, as pain persists. You may stagger these medication so you are taking a dose every three hours. 3.) You may apply a compression wrap or garment to the affected arm for comfort, as needed. 4.) Continue to use to arm, as too much rest may cause stiffness and increased pain. Sepsis Event Note (ED) - Evaluation Sepsis Screening Result: No Definite Risk - My Orders Last 24 Hours: My Active Orders 09/17/20 10:52 Forearm 2V Rt [CR] Urgent Humerus Rt [CR] Urgent - Assessment/Plan Last 24 Hours: My Active Orders 09/17/20 10:52 Forearm 2V Rt [CR] Urgent Humerus Rt [CR] Urgent
--- NOTE | 2020-09-17 11:23 | CR ---
PROCEDURE INFORMATION: Exam: XR Left Humerus Exam date and time: 09/17/2020 10:57 AM Age: 39 years old Clinical indication: Other: Fell onto extremity while walking TECHNIQUE: Imaging protocol: XR Left humerus Views: 2 or more views. COMPARISON: No relevant prior studies available. FINDINGS: Bones/joints: There is anatomic alignment. There is no acute fracture or dislocation. Small round glenoid bone island is identified. Joint spaces are preserved. Soft tissues: Normal. IMPRESSION: No acute abnormality.
--- NOTE | 2020-09-17 11:26 | CR ---
PROCEDURE INFORMATION: Exam: XR Left Forearm Exam date and time: 09/17/2020 11:01 AM Age: 39 years old Clinical indication: Other: Fell onto extremity while walking TECHNIQUE: Imaging protocol: XR Left forearm. Views: 2 views. COMPARISON: CR Humerus Lt 09/17/2020 10:57 AM FINDINGS: Bones/joints: There is anatomic alignment. No acute fracture or dislocation. The joint spaces are preserved. Soft tissues: Normal. IMPRESSION: No acute abnormality.
== END 2020-09-17 11:58 | disposition home or self-care (01) ==
LOC: DL.ED 10:35
DX: S59.902A Unspecified injury of left elbow, initial encounter (principal); M79.622 Pain in left upper arm; M79.632 Pain in left forearm; E03.9 Hypothyroidism, unspecified; Z79.899 Other long term (current) drug therapy; W19.XXXA Unspecified fall, initial encounter; Y92.512 Supermarket, store or market as the place of occurrence of the external cause
CPT/HCPCS: 73060-LT; 73090-LT; 99283

== ENCOUNTER 2022-02-05 10:45 | Emergency (ER) | payer BC, OTHER ==
[2022-02-05] MEDS ORDERED: Ondansetron 4 MG/2 ML SDV IVPUSH ONE (11:13)
[2022-02-05] MEDS ORDERED: fentaNYL 100 MCG/2 ML SDV IVPUSH ONE (11:13)
[2022-02-05 11:46] LABS: ANION GAP 9.9 mEq/L (7-13)
[2022-02-05] MEDS ORDERED: Ketorolac 30 MG/ML SDV IVPUSH ONE (12:12)
== END 2022-02-05 12:43 | disposition home or self-care (01) ==
LOC: DL.ED 10:45
DX: O03.4 Incomplete spontaneous abortion without complication (principal); E11.9 Type 2 diabetes mellitus without complications; Z20.822 Contact with and (suspected) exposure to COVID-19
CPT/HCPCS: 36415; 76817; 80053; 81001; 84702; 85025; 96374; 96375; 99284; J1885; J2405; J3010

== ENCOUNTER 2022-10-27 09:32 | Emergency (ER) | payer BC, OTHER ==
[2022-10-27] MEDS ORDERED: Sodium Chloride 0.9% 10 ML Syringe FLUSH PRN (09:55)
[2022-10-27 10:35] LABS: ANION GAP 12.5 mEq/L (7-13); CHLORIDE,CL 103 mmol/L (98-107); ESTIMATED GFR 84 mL/min (>=60); SODIUM,NA 138 mmol/L (136-145)
== END 2022-10-27 12:31 | disposition home or self-care (01) ==
LOC: DL.ED 09:32
DX: K80.20 Calculus of gallbladder without cholecystitis without obstruction (principal); E03.9 Hypothyroidism, unspecified; Z79.899 Other long term (current) drug therapy
CPT/HCPCS: 36415; 80053; 83690; 84703; 85025; 99283; 99284; J3490

== ENCOUNTER 2023-03-23 14:49 | Emergency (ER) | payer BC, OTHER ==
[2023-03-23] MEDS ORDERED: Sodium Chloride 0.9% 10 ML Syringe FLUSH PRN (15:04)
[2023-03-23] MEDS ORDERED: Morphine 4 MG/ML Syringe IVPUSH ONE ×2 (15:08→16:16)
[2023-03-23] MEDS ORDERED: Ondansetron 4 MG/2 ML SDV IVPUSH ONE ×2 (15:08→16:17)
[2023-03-23 15:17] LABS: BASOPHILS PERCENT AUTO 0.2 % (0.0-1.0); EOSINOPHILS PERCENT AUTO 1.4 % (1.0-3.0); HEMATOCRIT 38.2 % (37.0-47.0); HEMOGLOBIN 12.6 g/dL (12.0-16.0); LYMPHOCYTES PERCENT AUTO 18.9 % (20.5-50.1); MEAN CORPUSCULAR HEMOGLOBIN 26.2 pg (27.0-34.0); MEAN CORPUSCULAR VOLUME 79.4 fL (80-100); MONOCYTES PERCENT AUTO 5.5 % (2-8); PLATELET COUNT,PLT 176 10^3/uL (150-450); RED BLOOD CELL COUNT 4.81 10^6/uL (4.2-5.4); WHITE BLOOD CELL COUNT,WBC 9.7 10^3/uL (5.0-10.0)
[2023-03-23] MEDS ORDERED: Iopamidol 612 MG/ML 100 ML Bottle IVPUSH ONE (15:19)
[2023-03-23 15:37] LABS: ALBUMIN 3.7 g/dL (3.4-5.0); ANION GAP 10.8 mEq/L (7-13); BILIRUBIN TOTAL 0.4 mg/dL (0.2-1.0); BUN/CREATININE RATIO 11.1 (No establ ref range); CALCIUM 8.6 mg/dL (8.5-10.1); CREATININE 1.08 mg/dL (0.55-1.02); EST CRCL DRUG DOSING (CG) 62.88 mL/min; POTASSIUM,K 3.8 mmol/L (3.5-5.1); PROTEIN TOTAL,TP 7.5 g/dL (6.4-8.2)
[2023-03-23] MEDS ORDERED: Piperacillin/Tazobactam 3.375 GM in Sodium Chloride 0.9% 100 ML IV ONE (16:17)
== END 2023-03-23 18:55 ==
LOC: DL.ED 14:49
DX: K81.9 Cholecystitis, unspecified (principal)
CPT/HCPCS: 36415; 74177; 80053; 83690; 85025; 96365; 96375; 96376; 99284; 99285; J2270; J2405; J2543; J3490; Q9967

== ENCOUNTER 2023-06-30 14:32 | Emergency (ER) | payer BC, OTHER ==
[2023-06-30] MEDS ORDERED: Acetaminophen 500 MG Tab PO ONE (15:28)
[2023-06-30 15:49] LABS: APPEARANCE,URINE CLEAR (CLEAR); BILIRUBIN,URINE NEGATIVE (NEGATIVE); COLOR,URINE YELLOW (YELLOW); GLUCOSE,URINE NEGATIVE (NEGATIVE); KETONES,URINE NEGATIVE (NEGATIVE); LEUKOCYTE ESTERASE,URINE NEGATIVE (NEGATIVE); NITRITE,URINE NEGATIVE (NEGATIVE); OCCULT BLOOD,URINE SMALL (NEGATIVE); PH,URINE 6.5 (5.0-9.0); PROTEIN,URINE TRACE (NEGATIVE)
[2023-06-30 16:07] LABS: AMORPHOUS SEDIMENT,URINE FEW /HPF (NOT SEEN); BACTERIA,URINE FEW /HPF (0-FEW/HPF); EPITHELIAL CELLS,URINE MANY /HPF (NOT SEEN); MUCUS,URINE MANY /LPF (NOT SEEN); RBC,URINE 30-40 /HPF (0-5); WBC,URINE 0-5 /HPF (0-5/HPF)
[2023-06-30 16:18] LABS: CORONAVIRUS COVID-19 NAA NEGATIVE (NEGATIVE); INFLUENZA A NAA NEGATIVE (NEGATIVE); INFLUENZA B NAA NEGATIVE (NEGATIVE); RESPIRATORY SYNCYTIAL VIR NAA NEGATIVE (NEGATIVE)
[2023-06-30] MEDS ORDERED: Ketorolac 30 MG/ML SDV IM ONE (16:41)
[2023-06-30] MEDS ORDERED: Oxymetazoline 0.05% Nasal Spray 30 ML Bottle NAS ONE (16:41)
[2023-06-30] MEDS ORDERED: Promethazine 25 MG/ML SDV IM ONE (16:41)
== END 2023-06-30 17:21 | disposition home or self-care (01) ==
LOC: DL.ED 14:32
DX: J06.9 Acute upper respiratory infection, unspecified (principal); R09.81 Nasal congestion; R31.21 Asymptomatic microscopic hematuria; I10 Essential (primary) hypertension; E03.9 Hypothyroidism, unspecified; Z20.822 Contact with and (suspected) exposure to COVID-19; Z79.899 Other long term (current) drug therapy
CPT/HCPCS: 0241U; 81001; 81025; 96372; 99284; A9270-GY; J1885; J2550

== ENCOUNTER 2024-01-02 21:53 | Emergency (ER) | payer BC, OTHER ==
[2024-01-02] MEDS: Ketorolac 30 MG/ML SDV IM ONE (22:56)
[2024-01-02] MEDS: Dexamethasone 4 MG/ML SDV PO ONE (22:57)
== END 2024-01-02 23:45 | disposition home or self-care (01) ==
LOC: DL.ED 21:53
DX: G43.909 Migraine, unspecified, not intractable, without status migrainosus (principal); I10 Essential (primary) hypertension; E03.9 Hypothyroidism, unspecified; Z86.16 Personal history of COVID-19; Z90.49 Acquired absence of other specified parts of digestive tract; Z79.899 Other long term (current) drug therapy
CPT/HCPCS: 96372; 99283; J1885; J8540